=== PATIENT | female | born 1975 | race Hispanic/Latino ===

== ENCOUNTER 2019-01-16 12:08 | Emergency (ER) | payer MEDICARE ==
[~2019-01-16] VITALS: Ht 165.1 cm; Wt 73.9 kg
[~2019-01-16 12:08] MED LIST: ALBUTEROL SULF8.5 GM; GLIMEPIRIDE1 MG PO; JANUMET 50-1,01 EACH PO; LOVASTATIN10 MG PO
--- OUTSIDE RECORDS SUMMARY | 2019-01-16 12:11 | XMS REPORT ---
Author Author [facility] Address Unknown Phone Unavailable Care Team Providers Care [employer] Sh[employer] Technician Name Role Phone Unavailable Unavailable Payers Payer Name Policy Type Policy Number Effective Date Expiration Date Problems This patient has no known problems. Allergies, Adverse Reactions, Alerts Allergy Name Allergy Type Status Severity Reaction(s) Onset Date Inactive Date Treating Clinician Comments No Known Allergies DA Active U 2018-11-05 00:00:00 No Known Allergies DA Active U 2018-08-25 00:00:00 No Known Allergies DA Active U 2018-05-20 00:00:00 No Known Allergies DA Active U 2017-11-29 00:00:00 Medications This patient has no known medications. Encounters Start Date/Time End Date/Time Encounter Type Admission Type Attending Clinicians Care Facility Care Department Encounter ID 2017-04-22 22:01:16 2017-04-22 22:01:16 Emergency [facility] [id number] 2017-04-22 21:49:01 2017-04-22 21:49:01 Emergency [facility] [id number] Results Test Description Test Time Test Comments Text Results Atomic Results Result Comments INFLUENZA A B ANTIBODIES 2018-11-05 13:41:00 AB INFLUENZA A CF (test code=INFLAABT) AB INFLUENZA B CF (test code=INFLBABT) COMMENTS: If seasonally appropriateINFLUENZA A [id number] 13:41:00* Test Item Value Reference Range Comments INFLUENZA A (test code=FLUAPCR) Negative Negative INFLUENZA B (test code=FLUBPCR) Negative Negative COMMENTS: If seasonally appropriate- XR CHEST 2 [id number] 12:09:00 FAX: Oralia Wilson MD [phone] [place]: St: REG FAX: Jair Villanueva MD [phone] Name: DIEGO CARVALHO [facility] : 1975 Age/S: 43/F [address] [place], [place] [address] Unit #: [id number] Loc: [place] [address] Phys: Jair Villanueva MD Acct: [id number] Dis Date: Status: REG ER PHONE #: [phone] Exam Date: 11/05/2018 1205 FAX #: [phone] Reason: Fever EXAMS: CPT CODE: [id number] XR CHEST 2 V 88484 PROCEDURE: CHEST TWO VIEW INDICATION: Fever and cough COMPARISON: 07/17/2018 FINDINGS: The lungs are clear. The pleura, cardiomediastinal silhouette and bony thorax are normal. No vascular congestion is present. IMPRESSION: No acute ca rdiopulmonary process. SL: [id number] E lectronically Signed by Freda Parra on at 1209 Reported and signed by: Rina Parra M.D. CC: Oralia Wilson MD; Jair panda MD Technologist: Arminda Chaney, RT(R); KUNAL Gross RT(R) Trnscrd Date/Time/By: 11/05/2018 (4019) : By: [email or web address] Orig Print D/T: S: 11/05/2018 (4939) PAGE 1 Signed Report UA CULT [id number] 14:35:00* Test Item Value Reference Range Comments UA WBC (test code=WBCU) 4-9 WBC/HPF 0-3 UA SQUAMOUS CELLS (test code=SQU) 6-10 /HPF NONE SEEN UA CULTURE NEEDED? (test code=UACULT) NO, WBC<10 Criteria Culture Chk Criteria not met, Urine Culture cancelled. URINALYSIS [id number] 14:06:00* Test Item Value Reference Range Comments UA COLOR (test code=COLU) YELLOW YEL/STRAW UA APPEARANCE (test code=APPU) CLEAR CLEAR UA GLUCOSE DIPSTICK (test code=DGLUU) 3+ NEGATIVE UA BILIRUBIN DIPSTICK (test code=BILU) NEGATIVE NEGATIVE UA KETONE DIPSTICK (test code=KETU) TRACE NEGATIVE UA SPECIFIC GRAVITY (test code=SGU) 1.022 1.005-1.030 UA BLOOD DIPSTICK (test code=THUY) NEGATIVE NEGATIVE UA PH DIPSTICK (test code=FENG) 6.0 5.0-7.0 UA PROTEIN DIPSTICK (test code=PROU) NEGATIVE NEGATIVE UA UROBILINIOGEN DIPSTICK (test code=URO) 0.2 mg/dL 0.2-1.0 UA NITRITE DIPSTICK (test code=DELMA) NEGATIVE NEGATIVE UA LEUKOCYTE ESTERASE DIPSTICK (test code=LEUU) NEGATIVE NEGATIVE UA WBC (test code=WBCU) 4-9 WBC/HPF 0-3 UA RBC (test code=RBCU) 4-10 RBC/HPF 0-3 UA BACTERIA (test code=BACU) 1+ /HPF NONE SEEN UA SQUAMOUS CELLS (test code=SQU) 6-10 /HPF NONE SEEN UA MUCUS (test code=MUCU) TRACE /LPF NONE SEEN UA YEAST (BUDDING) (test code=YEASTUBD) 2+ /HPF NONE COMMENTS: Clean CatchCOMPREHENSIVE METABOLIC [id number] 12:35:00* Test Item Value Reference Range Comments SODIUM (test code=NA) 136 mEq/L 134-147 POTASSIUM (test code=K) 3.9 mEq/L 3.4-5.0 CHLORIDE (test code=CL) 103 mEq/L 100-108 CARBON DIOXIDE (test code=CO2) 26 mEq/L 21-33 ANION GAP (test code=GAP) 11 0-20 GLUCOSE (test code=GLU) 249 mg/dL 70-110 BLOOD UREA NITROGEN (test code=BUN) 8 mg/dL 7-18 GLOMERULAR FILTRATION RATE (test code=GFR) 109.1 95-105 Units of measure=ml/min/1.73 m2 CREATININE (test code=CREAT) 0.6 mg/dL 0.6-1.3 TOTAL PROTEIN (test code=PROT) 7.3 g/dL 6.4-8.2 ALBUMIN (test code=ALB) 3.40 g/dL 3.4-5.0 CALCIUM (test code=CA) 8.7 mg/dL 8.0-10.5 BILIRUBIN TOTAL (test code=BILT) 0.30 mg/dL 0.0-1.0 SGOT/AST (test code=AST) 12 IUnit/L 15-37 SGPT/ALT (test code=ALT) 26 IUnit/L 15-65 ALKALINE PHOSPHATASE TOTAL (test code=ALKP) 61 IUnit/L 20-125 [id number] 12:35:00* Test Item Value Reference Range Comments LIPASE (test code=LIP) 129 IUnit/L 73-393 CBC W/AUTO [id number] 12:04:00* Test Item Value Reference Range Comments WHITE BLOOD CELL (test code=WBC) 9.53 x10 3/uL 4.5-11.0 RED BLOOD CELL (test code=RBC) 4.68 x10 6/uL 3.54-5.02 HEMOGLOBIN (test code=HGB) 14.0 g/dL 11.0-15.0 HEMATOCRIT (test code=HCT) 42.4 % 33.0-45.0 MEAN CELL VOLUME (test code=MCV) 90.6 fL 81.0-99.0 MEAN CELL HGB (test code=MCH) 29.9 pg 27.0-33.0 MEAN CELL HGB CONCETRATION (test code=MCHC) 33.0 g/dL 33.0-37.0 RED CELL DISTRIBUTION WIDTH CV (test code=RDW) 11.8 % 11.5-14.5 RED CELL DISTRIBUTION WIDTH SD (test code=RDW-SD) 38.8 fL 37.0-54.0 PLATELET COUNT (test code=PLT) 382 x10 3/uL 150-400 MEAN PLATELET VOLUME (test code=MPV) 10.2 fL 7.0-9.0 NEUTROPHIL % (test code=NT%) 59.7 % 56.0-77.0 IMMATURE GRANULOCYTE % (test code=IG%) 0.4 % 0.0-2.0 LYMPHOCYTE % (test code=LY%) 30.8 % 14.0-32.0 MONOCYTE % (test code=MO%) 6.1 % 4.8-9.0 EOSINOPHIL % (test code=EO%) 2.5 % 0.3-3.7 BASOPHIL % (test code=BA%) 0.5 % 0.0-2.0 NUCLEATED RBC % (test code=NRBC%) 0.0 % 0-0 NEUTROPHIL # (test code=NT#) 5.68 x10 3/uL 2.0-7.6 IMMATURE GRANULOCYTE # (test code=IG#) 0.04 x10 3/uL 0.00-0.03 LYMPHOCYTE # (test code=LY#) 2.94 x10 3/uL 1.0-3.8 MONOCYTE # (test code=MO#) 0.58 x10 3/uL 0.1-0.8 EOSINOPHIL # (test code=EO#) 0.24 x10 3/uL 0.0-0.2 BASOPHIL # (test code=BA#) 0.05 x10 3/uL 0.0-0.2 NUCLEATED RBC # (test code=NRBC#) 0.00 x10 3/uL 0.0-0.1 MANUAL DIFF REQUIRED (test code=MDIFF) NO - CT ABD PELVIS W/O [id number] 12:02:00 Name: DIEGO CARVALHO [facility] : 1975 Age/S: 43 / F [address] [place] [address] Unit #: [id number] Loc: [place] [address] Phys: Konstantin An DO Acct: [id number] Dis Date: Status: REG ER PHONE #: [phone] Exam Date: 09/30/2018 1144 FAX #: [phone] Reason: right flank pain EXAMS: CPT CODE: [id number] CT ABD PELVIS W/O CONT 62857 Procedure: CT Abdomen/Pelvis without Contrast. Clinical Indication: Right flank pain. Comparison: CT scan of the abdomen and pelvis 03/03/2018. TECHNIQUE: Noncontrasted helical imaging was performed from the kidneys through the symphysis as a renal stone protocol. Axial and coronal reformations are available. CT imaging performed at this location utilizes radiation dose optimization techniques which include one or more of the following: - Automated exposure control -Adjustment of the mA and/or kV according to patient size -Use of iterative reconstruction technique CT Radiation Dose DLP 514 mGy-cm FINDINGS: This examination is limited for the evaluation of solid organs and vascular structures due to lack of intravenous contrast, which is standard for urinary calculus assessment CT. LOWER CHEST: The lung bases are clear. KIDNEYS: The kidneys are unremarkable. There is a stable tiny 2 mm calcification in the right hemipelvis near the expected location of the distal right ureter however likely represents a calcified phlebolith. SOLID ORGANS: The liver demonstrates diminished attenuation consistent with fatty infiltration. There are calcified splenic granulomata. The noncontrast pancreas, adrenal glands and gallbladder appear normal. BOWEL: There are scattered colonic diverticula most pronounced in the sigmoid colon. No bowel obstruction is observed however extensive ret ained fecal matter throughout the colon precludes evaluation for polypoid lesions. The appendix is unremarkable. PERITONEUM: No free intra peritoneal fluid or air. RETROPERITONEUM: No adenopathy. Aorta is normal. PELVIS: The patient has had previous hysterectomy. There is a surgical clip in the left adnexa. The patient has had previous right PAGE 1 Signed Report (CONTINUED) Name: DIEGO CARVALHO [facility] : 1975 Age/S: 43 / F [address] [place] [address] Unit #: [id number] Loc: [place] [address] Phys: Kvng An DO Acct: [id number] Di s Date: Status: REG ER PHONE #: Exam Date: 09/30/2018 9699 FAX #: [phone] Reason: right flank pain EXAMS: CPT CODE: [id number] CT ABD PELVIS W/O CONT 46099 <Continued> oophorectomy by report. The left ovary is unremarkable. The urinary bladder is not fully distended for diagnosis however no acute abnormality is identified. MUSCULOSKELETAL: Degenerative change involves the lower lumbosacral spine. IMPRESSION: 1. Stable tiny 2 mm calcification near the expected location of the distal right ureter, likely representing a calcified phlebolith. 2. No hydronephrosis or nephrolithiasis identified. 3. Fatty infiltration of the liver. 4. Previous granulomatous disease. 5. Colonic diverticulosis. 6. Prior hysterectomy and right oophorectomy. 7. Degenerative change. SL: XENIA at 1202 Reported and signed by: Daniel Rojas M.D. CC: Oralia Wilson MD; Konstantin An DO Technologist:Hernesto Robles RT(R) CTDI: DLP: Trnscb Date/Time: 09/30/2018 (7675) GiacomoO Orig Print D/T: S: 09/30/2018 (4461) CTDI: DLP: PAGE 2 Signed Report
--- OUTSIDE RECORDS SUMMARY | 2019-01-16 12:11 | XMS REPORT ---
Author Author Admin, [place] [facility] Address Unknown Phone Unavailable Allergies, Adverse Reactions, Alerts Allergy Name Reaction Description Start Date Severity Status Provider No Known Allergies Clarisse Weaver [employer] Conditions or Problems Problem Name Problem Code Onset Date Status Entry Date Provider Comment Standard Description Annotate Migraine headache 346.90 Active Oralia Wilson MD Migraine, unspecified, without mention of intractable migraine, without mention of status migrainosus Breast cancer 174.9 Active Jerel Olivo MD Malignant neoplasm of breast (female), unspecified Follow-up examination, vaginal Pap smear V76.2 Active Jerel Olivo MD Screening for malignant neoplasms of the cervix 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 V72.3 Active Jerel Olivo MD Special investigations and examinations - Gynecological examination Hypercholesterolemia 272.0 Active Kathy Phan MD (res) Pure hypercholesterolemia Knee joint pain, left 719.46 Active Kathy Phan MD (res) Pain in joint involving lower leg Anxiety 300.00 Active Oralia Wilson MD Anxiety state, unspecified BMI 27.0-27.9 Active Oralia Wilson MD Body Mass Index 27.0-27.9, adult Breast cancer, personal hx V10.3 Active Oralia Wilson MD Personal history of malignant neoplasm of breast left mastectomy Breast pain, left 611.71 Active Oralia Wilson MD Mastodynia Diabetes mellitus 250.00 Active Oralia Wilson MD Diabetes mellitus without mention of complication, type II or unspecified type, not stated as uncontrolled Elevated blood pressure 796.2 Active Oralia Wilson MD Elevated blood pressure reading without diagnosis of hypertension Fatigue 780.79 Active Oralia Wilson MD Other malaise and fatigue Hx of mastectomy, right V45.71 Active Oralia Wilson MD Acquired absence of breast and nipple in 2010 Overweight Active Oralia Wilson MD Overweight Screening, Thyroid Disorders V77.0 Inactive Oralia Wilson MD Screening for thyroid disorders Screening, Thyroid Disorders ICD-V77.0 Inactive Oralia Wilson MD Medication List Medication Instructions Start Date Stop Date Generic Name NDC Status Provider Patient Instruction JANUVIA 100 MG ORAL TABLET 1 tab By Mouth daily SITAGLIPTIN PHOSPHATE 33869270167 Active Oralia Wilson MD Active PROPRANOLOL HCL 20 MG ORAL TABLET 1 tab By Mouth Twice a Day PROPRANOLOL HCL 15990330391 Active Oralia Wilson MD Active GLIPIZIDE 10 MG ORAL TABLET 1 tab By Mouth daily GLIPIZIDE 45866009072 Active Oralia Wilson MD Active LOVASTATIN 20 MG ORAL TABLET 1 tab By Mouth daily take at bedtime LOVASTATIN 64675024001 Active Oralia Wilson MD Active LISINOPRIL 10 MG ORAL TABLET 1 by mouth every day LISINOPRIL 47173573879 Active Oralia Wilson MD Active METFORMIN HCL 1000 MG ORAL TABLET 1 by mouth twice a day METFORMIN HCL 99242455527 Active Oralia Wilson MD Active TERCONAZOLE 0.4 % VAGINAL CREAM 1 applicator per vagina once a night for 7 days TERCONAZOLE 0.4 % VAGINAL CREAM 782091 TERCONAZOLE Inactive TERCONAZOLE 0.4 % VAGINAL CREAM 1 applicator per vagina once a night for 7 days TERCONAZOLE 81945161326 No Longer Active Jerel Olivo MD Active Immunizations Vaccine Administration Date Value Standard Description influenza immunization (Flu Vax) has been administered given influenza virus vaccine, unspecified formulation Vital Signs Date Name Value Unit Range Description blood pressure, diastolic, second observation 85 mm[Hg] BP roberts blood pressure, diastolic 85 mm[Hg] BP roberts blood pressure, systolic, second observation 142 mm[Hg] BP sys blood pressure, systolic 142 mm[Hg] BP sys height E&M 65 [in_us] Bdy height pulse rate E&M 91 /min Heart rate respiratory rate E&M 16 /min Resp rate temperature E&M 99.5 [degF] Body temperature weight E&M 153.38 [lb_av] Weight Measured blood pressure, diastolic 101 mm[Hg] BP roberts blood pressure, systolic 141 mm[Hg] BP sys height E&M 65 [in_us] Bdy height pulse rate E&M 102 /min Heart rate respiratory rate E&M 17 /min Resp rate temperature E&M 98.4 [degF] Body temperature weight E&M 160 [lb_av] Weight Measured blood pressure, diastolic 89 mm[Hg] BP roberts blood pressure, systolic 125 mm[Hg] BP sys height E&M 65 [in_us] Bdy height pulse rate E&M 101 /min Heart rate respiratory rate E&M 15 /min Resp rate temperature E&M 98.5 [degF] Body temperature weight E&M 159.80 [lb_av] Weight Measured blood pressure, diastolic, second observation 96 mm[Hg] BP roberts blood pressure, diastolic 96 mm[Hg] BP roberts blood pressure, systolic, second observation 146 mm[Hg] BP sys blood pressure, systolic 146 mm[Hg] BP sys height E&M 65 [in_us] Bdy height pulse rate E&M 100 /min Heart rate respiratory rate E&M 17 /min Resp rate temperature E&M 98.6 [degF] Body temperature weight E&M 162 [lb_av] Weight Measured Diagnostic Results Date Name Value Unit Range Description Lab Report: CBC With Differential/Platelet, Basic Metabolic Panel (8), T ... - Hematology basophils as percent of blood leukocytes 0 % Not Estab. Lab Report: CBC With Differential/Platelet, Basic Metabolic Panel (8), T ... - Chemistry calcium, serum 9.7 mg/dL 8.7-10.2 Lab Report: CBC With Differential/Platelet, Basic Metabolic Panel (8), T ... - Hematology lymphocyte count, blood, automated 2.7 X10E3/UL 10*3/mm3 0.7-3.1 Lab Report: CBC With Differential/Platelet, Basic Metabolic Panel (8), T ... - Chemistry urea nitrogen, blood 9 mg/dL 6-24 Lab Report: CBC With Differential/Platelet, Basic Metabolic Panel (8), T ... 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 - Chemistry urea nitrogen/creatinine ratio, serum 14 9-23 immature granulocytes, percentage of total cells, blood 0 % Not Estab. creatinine, serum 0.65 mg/dL 0.57-1.00 Lab Report: CBC With Differential/Platelet, Basic Metabolic Panel (8), T ... - Genetics/fertility eGFR if 127 mL/min/1.73m2 >59 Lab Report: CBC With Differential/Platelet, Basic Metabolic Panel (8), T ... - Hematology mean corpuscular volume, RBC 91 fL 79-97 Lab Report: CBC With Differential/Platelet, Basic Metabolic Panel (8), T ... - Chemistry chloride, serum 94 mmol/L 96-106 Lab Report: Lipid Panel, Hemoglobin A1c - Chemistry triglyceride, serum, fasting 224 mg/dL 0-149 Lab Report: CBC With Differential/Platelet, Basic Metabolic Panel (8), T ... - Hematology lymphocytes as percent of blood leukocytes 23 % Not Estab. erythrocyte (RBC) count 5.00 X10E6/UL 10*6/mm3 3.77-5.28 Lab Report: CBC With Differential/Platelet, Basic Metabolic Panel (8), T ... - Chemistry Estimated Glomerular Filtration Rate (calc) 110 mL/min/1.73m2 >59 Lab Report: CBC With Differential/Platelet, Basic Metabolic Panel (8), T ... - Hematology platelet count 361 X10E3/UL 10*3/mm3 964-792 7243/10/27 red blood cell distribution width 12.8 % 12.3-15.4 Lab Report: CBC With Differential/Platelet, Basic Metabolic Panel (8), T ... - Chemistry carbon dioxide, venous blood 22 mmol/L 18-29 Lab Report: Lipid Panel, Hemoglobin A1c - Chemistry HDL cholesterol, serum 37 mg/dL >39 Lab Report: CBC With Differential/Platelet, Basic Metabolic Panel (8), T ... - Chemistry sodium, serum 134 mmol/L 134-144 Office Visit: Acute Visit - Chemistry hemoglobin A1C, blood, as % of total hemoglobin 10.9 % Office Visit: Adult Followup on blood pressure rm 7 Dr Phan - Chemistry blood glucose, fasting 297 mg/dL Lab Report: CBC With Differential/Platelet, Basic Metabolic Panel (8), T ... - Hematology eosinophils as percent of blood leukocytes 2 % Not Estab. Lab Report: CBC With Differential/Platelet, Basic Metabolic Panel (8), T ... - Chemistry Absolute Neutrophils 8.3 X10E3/UL 10*3/uL 1.4-7.0 Lab Report: CBC With Differential/Platelet, Basic Metabolic Panel (8), T ... - Hematology basophil count, absolute 0.0 x10E3/uL 0.0-0.2 Lab Report: Lipid Panel, Hemoglobin A1c - Chemistry LDL cholesterol, serum 151 mg/dL 0-99 Lab Report: CBC With Differential/Platelet, Basic Metabolic Panel (8), T ... - Hematology Eosinophil Absolute Count 0.2 X10E3/UL 10*3/uL 0.0-0.4 monocytes as percent of blood leukocytes 4 % Not Estab. Lab Report: Lipid Panel, Hemoglobin A1c - Chemistry cholesterol, serum 233 mg/dL 100-199 Lab Report: CBC With Differential/Platelet, Basic Metabolic Panel (8), T ... - Hematology mean corpuscular hemoglobin, RBC 31.2 pg 26.6-33.0 mean corpuscular hemoglobin concentration, RBC 34.2 G/DL % 31.5-35.7 hemoglobin, blood 15.6 g/dL 11.1-15.9 neutrophils as percent of blood leukocytes 71 % Not Estab. leukocyte count, blood 11.8 X10E3/UL 10*3/mm3 3.4-10.8 hematocrit, blood 45.6 % 34.0-46.6 Lab Report: CBC With Differential/Platelet, Basic Metabolic Panel (8), T ... - Chemistry potassium, serum 4.6 mmol/L 3.5-5.2 blood glucose, random 301 mg/dL 65-99 thyroid stimulating hormone, serum 1.080 u[iU]/mL 0.450-4.500 Lab Report: Lipid Panel, Hemoglobin A1c - Chemistry very low density lipoproteins 45 mg/dL 5-40 Internal Correspondence: Pre-Visit Planning - Other List of providers caring for patient Diane Wills and Adina Vera Encounters Date Encounter Provider Code Facility 13:51:56 CDT Est Patient Exp Problem - 68457 Oralia Wilson MD CPT-51554 [facility] 12:04:00 CDT Est Patient Exp Problem - 92615 Kathy Phan MD (res) CPT-90129 [facility] 14:23:43 CDT New Patient Detailed - 42471 Oralia Wilson MD CPT-06084 [facility] Procedures Code Procedure Name Date Entry Date Standard Description CPT-HE001 Health Education/Supportive Counseling 17:19:43 CDT CPT-62206 HEMOGLOBIN A1C - In House 15:56:13 CDT CPT-45063 Est Patient Well Exam (40 - 64 Yrs) - [address]15 16:18:53 CDT
[2019-01-16] MEDS ORDERED: HYDROCODONE/APAP 7.5MG-325MG 1 EA TAB PO PRN (13:00)
[2019-01-16] MEDS ORDERED: CYCLOBENZAPRINE HCL 10 MG TAB PO ONE (13:00)
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
--- NOTE | 2019-01-16 15:18 | Diagnostic Imaging Report ---
History: C2 fracture seen on same-day cervical spine x-ray Comparison studies: X-ray of the cervical spine 01/16/2019 Technique: Axial images were obtained through the cervical region.. Coronal and sagittal images reconstructed from the axial data.. Intravenous contrast: None Dose modulation, iterative reconstruction, and/or weight based adjustment of the mA/kV was utilized to reduce the radiation dose to as low as reasonably achievable. Findings: Fractures: None. The previously visualized lucency at the base of the dens on the odontoid view is artifactual. Soft tissues: No gross abnormalities. Atlantoaxial articulation: Mild degenerative changes with decreased predental space, marginal osteophytes and sclerotic changes. Alignment: Straightening of the normal lordosis. No scoliosis. Cervicomedullary junction: No abnormalities. The foramen magnum is patent. Vertebrae: No infection or neoplasm. Degenerative changes: Patent canal and foramina. Right mastoidectomy changes partially visualized. IMPRESSION: 1. No acute cervical spine abnormalities. No odontoid fracture is seen. Degenerative changes at the atlantoaxial joint. 2. Cannot exclude ligament, spinal cord and or vascular abnormalities on the basis of this examination. Signed by: DR Jordi Clinton M.D. on 01/16/2019 3:15 PM
[2019-01-16 15:48] VITALS: BP 115/70
== END 2019-01-16 16:44 | disposition home or self-care (01) ==
LOC: ER 12:08
DX: M54.2 Cervicalgia (principal); S16.1XXA Strain of muscle, fascia and tendon at neck level, initial encounter; V43.52XA Car driver injured in collision with other type car in traffic accident, initial encounter; Y92.488 Other paved roadways as the place of occurrence of the external cause; Z85.3 Personal history of malignant neoplasm of breast
CPT/HCPCS: 72050; 72125; 99284

== ENCOUNTER 2021-01-08 22:02 | Inpatient (IN) | payer BC, OTHER ==
[~2021-01-08] VITALS: Ht 165.1 cm; Wt 73.9 kg
[2021-01-08 22:34] LABS: BASOPHILS # (AUTO) 0.1 (0.0-0.1); BASOPHILS % 0.6 % (0.0-1.0); EOSINOPHILS # (AUTO) 0.3 (0.0-0.4); EOSINOPHILS % 3.2 % (0.0-6.0); HEMATOCRIT 39.8 % (34.2-44.1); HEMOGLOBIN 13.4 g/dL (12.0-16.0); LYMPHOCYTES # (AUTO) 2.9 (1.0-3.2); MEAN CORPUSCULAR HEMOGLOBIN 29.6 pg (28-32); MEAN CORPUSCULAR HGB CONC 33.7 g/dL (31-35); MEAN CORPUSCULAR VOLUME 87.9 fL (81-99); MONOCYTES # (AUTO) 0.7 (0.2-0.8); MONOCYTES % 8.1 % (4.4-11.3); NEUTROPHILS # (AUTO) 4.4 (2.1-6.9); NEUTROPHILS % 52.9 % (38.7-80.0); PLATELET COUNT 278 x10e3/uL (140-360); RED BLOOD COUNT 4.53 x10e6/uL (3.6-5.1); RED CELL DISTRIBUTION WIDTH 12.8 % (11.7-14.4)
[2021-01-08] MEDS ORDERED: NITROGLYCERIN 2% OINT 1 GM PKT TOP ONE (22:45)
[2021-01-08 22:52] LABS: ALANINE AMINOTRANSFERASE 20 IU/L (0-55); ALBUMIN 3.5 g/dL (3.5-5.0); ALBUMIN/GLOBULIN RATIO 0.9 (0.8-2.0); ALKALINE PHOSPHATASE 63 IU/L (40-150); ANION GAP 15.5 mmol/L (8-16); BLOOD UREA NITROGEN 10 mg/dL (7-26); BUN/CREATININE RATIO 13 (6-25); CARBON DIOXIDE 27 mmol/L (22-29); CHLORIDE 99 mmol/L (98-107); CREATINE KINASE 43 IU/L (29-168); CREATININE, SERUM 0.79 mg/dL (0.57-1.11); EST GLOMERULAR FILTRATION RATE > 60 ML/MIN (60-); GLUCOSE 391 mg/dL (74-118); POTASSIUM 4.5 mmol/L (3.5-5.1); SODIUM 137 mmol/L (136-145)
[2021-01-09] MEDS ORDERED: DEXTROSE 50% SYRINGE 50 ML IV PRN ×2 (00:45→07:15)
[2021-01-09] MEDS: ACETAMINOPHEN 325 MG TAB PO PRN ×2 (03:27→07:47)
[2021-01-09] MEDS ORDERED: ACETAMINOPHEN 325 MG TAB ONE (03:32)
[2021-01-09 07:05] LABS: CREATINE KINASE MB 0.7 ng/mL (0-5.0)
[2021-01-09 07:36] LABS: CHOL/HDL RATIO 4.9 (3.0-3.6)
[2021-01-09] MEDS: NITROGLYCERIN 2% OINT 1 GM PKT TOP SCH ×3 (07:45→16:12)
[2021-01-09] MEDS: INSULIN REGULAR, HUMAN 100 UNIT/1 ML 3ML VIAL SQ SCH ×2 (07:53→11:30)
[2021-01-09] MEDS: INSULIN LISPRO 100 UNIT/1 ML 3ML VIAL SQ SCH ×4 (07:54→20:36)
[2021-01-09] MEDS: ASPIRIN 81 MG ENTERIC COATED PO SCH (08:18)
[2021-01-09 11:43] VITALS: BP 144/82
[2021-01-09 11:55] VITALS: BP 144/82
[2021-01-09 11:57] VITALS: BP 144/82
[2021-01-09] MEDS ORDERED: REGADENOSON 0.4 MG/5 ML SYR IV ONE (13:18)
[2021-01-09 16:08] VITALS: BP 148/93
[2021-01-09] MEDS ORDERED: CLOPIDOGREL BISULFATE 75 MG TAB PO ONE (16:15)
[2021-01-09] MEDS: CARVEDILOL 12.5 MG TAB PO SCH (16:31)
[2021-01-09 17:09] LABS: CREATINE KINASE MB 0.7 ng/mL (0-5.0)
[2021-01-09] MEDS: ONDANSETRON HCL INJ 2MG/ML 2ML 2 MG/ML VIAL IV PRN (17:38)
[2021-01-09] MEDS: MORPHINE SULFATE INJ 2 MG/ML SYR IV PRN (17:38)
[2021-01-09 20:00] VITALS: BP 134/75
[2021-01-09] MEDS: ATORVASTATIN 40 MG TAB PO SCH (20:35)
[2021-01-09 20:36] VITALS: BP 134/75
[2021-01-09] MEDS ORDERED: ATORVASTATIN 20 MG TAB PO SCH (21:00)
[2021-01-10] VITALS (10 sets, daily range): BP systolic 101–137; BP diastolic 62–84
[2021-01-10] MEDS: NITROGLYCERIN 2% OINT 1 GM PKT TOP SCH ×4 (05:19→16:19)
[2021-01-10] MEDS: ACETAMINOPHEN 325 MG TAB PO PRN (06:59)
[2021-01-10 07:09] LABS: BASOPHILS % 0.5 % (0.0-1.0); EOSINOPHILS # (AUTO) 0.2 (0.0-0.4); EOSINOPHILS % 3.1 % (0.0-6.0); HEMATOCRIT 39.1 % (34.2-44.1); LYMPHOCYTES # (AUTO) 2.2 (1.0-3.2); LYMPHOCYTES % 27.6 % (18.0-39.1); MEAN CORPUSCULAR HEMOGLOBIN 29.1 pg (28-32); MEAN CORPUSCULAR HGB CONC 33.2 g/dL (31-35); MEAN CORPUSCULAR VOLUME 87.7 fL (81-99); MONOCYTES # (AUTO) 0.7 (0.2-0.8); MONOCYTES % 8.6 % (4.4-11.3); NEUTROPHILS # (AUTO) 4.7 (2.1-6.9); NEUTROPHILS % 59.8 % (38.7-80.0); PLATELET COUNT 260 x10e3/uL (140-360); RED BLOOD COUNT 4.46 x10e6/uL (3.6-5.1); RED CELL DISTRIBUTION WIDTH 12.6 % (11.7-14.4)
[2021-01-10 07:30] LABS: ALANINE AMINOTRANSFERASE 18 IU/L (0-55); ALBUMIN/GLOBULIN RATIO 0.9 (0.8-2.0); ALKALINE PHOSPHATASE 56 IU/L (40-150); ANION GAP 15.5 mmol/L (8-16); BLOOD UREA NITROGEN 9 mg/dL (7-26); BUN/CREATININE RATIO 14 (6-25); CALCIUM 8.6 mg/dL (8.4-10.2); CARBON DIOXIDE 22 mmol/L (22-29); CHLORIDE 103 mmol/L (98-107); CREATININE, SERUM 0.66 mg/dL (0.57-1.11); EST GLOMERULAR FILTRATION RATE > 60 ML/MIN (60-); GLUCOSE 358 mg/dL (74-118); MAGNESIUM 1.7 MG/DL (1.3-2.1); POTASSIUM 4.5 mmol/L (3.5-5.1); SODIUM 136 mmol/L (136-145)
[2021-01-10 07:56] LABS: CHOL/HDL RATIO 5.2 (3.0-3.6)
[2021-01-10] MEDS: INSULIN LISPRO 100 UNIT/1 ML 3ML VIAL SQ SCH ×4 (08:01→22:36)
[2021-01-10] MEDS: ASPIRIN 81 MG ENTERIC COATED PO SCH (08:29)
[2021-01-10] MEDS: CLOPIDOGREL BISULFATE 75 MG TAB PO SCH (08:30)
[2021-01-10] MEDS: CARVEDILOL 12.5 MG TAB PO SCH ×2 (08:30→16:44)
[2021-01-10] MEDS: MORPHINE SULFATE INJ 2 MG/ML SYR IV PRN ×3 (10:37→16:51)
[2021-01-10] MEDS: ONDANSETRON HCL INJ 2MG/ML 2ML 2 MG/ML VIAL IV PRN ×2 (10:38→16:00)
[2021-01-10] MEDS: ATORVASTATIN 40 MG TAB PO SCH (20:06)
[2021-01-11] VITALS (9 sets, daily range): BP systolic 114–141; BP diastolic 62–86
[2021-01-11] MEDS: NITROGLYCERIN 2% OINT 1 GM PKT TOP SCH ×4 (05:48→17:04)
[2021-01-11] MEDS: ASPIRIN 81 MG ENTERIC COATED PO SCH (07:57)
[2021-01-11] MEDS: CLOPIDOGREL BISULFATE 75 MG TAB PO SCH (07:58)
[2021-01-11] MEDS: CARVEDILOL 12.5 MG TAB PO SCH ×2 (07:58→17:04)
[2021-01-11] MEDS: INSULIN LISPRO 100 UNIT/1 ML 3ML VIAL SQ SCH ×4 (08:41→22:08)
[2021-01-11] MEDS: MORPHINE SULFATE INJ 2 MG/ML SYR IV PRN (17:06)
[2021-01-11] MEDS: ONDANSETRON HCL INJ 2MG/ML 2ML 2 MG/ML VIAL IV PRN (17:06)
[2021-01-11] MEDS: ATORVASTATIN 40 MG TAB PO SCH (20:27)
[2021-01-12] VITALS: BP 116/67
[2021-01-12 04:00] VITALS: BP 122/67
[2021-01-12] MEDS: NITROGLYCERIN 2% OINT 1 GM PKT TOP SCH ×2 (06:00)
[2021-01-12] MEDS: INSULIN LISPRO 100 UNIT/1 ML 3ML VIAL SQ SCH ×3 (06:40→11:30)
[2021-01-12] MEDS ORDERED: HEPARIN SOD (PORCINE) 1000 UNIT/ML 30ML ONE (07:06)
[2021-01-12] MEDS ORDERED: MIDAZOLAM HCL 2 MG/2 ML VIAL ONE (07:06)
[2021-01-12] MEDS ORDERED: HEPARIN SOD/SOD CHLORIDE 2,000 ML ONE (07:07)
[2021-01-12] MEDS ORDERED: LIDOCAINE HCL 2% LOCAL 20 ML VIAL ONE (07:07)
[2021-01-12] MEDS ORDERED: IOPAMIDOL 370 MG/ML 200 ML INFUS..BTL INJ ONE (07:07)
[2021-01-12] MEDS ORDERED: FENTANYL CITRATE/PF 100MCG/2 ML INJ ONE (07:07)
[2021-01-12] MEDS ORDERED: NITROGLYCERIN/D5W 200 MCG/ML 0 ML ONE (07:08)
[2021-01-12] MEDS ORDERED: SODIUM CHLORIDE 0.9% 1000ML 1,000 ML ONE (07:08)
[2021-01-12] MEDS ORDERED: METFORMIN HCL 500 MG TAB CR PO SCH (08:00)
[2021-01-12 08:18] VITALS: BP 122/76
[2021-01-12 08:36] VITALS: BP 122/76
[2021-01-12] MEDS: CLOPIDOGREL BISULFATE 75 MG TAB PO SCH (08:37)
[2021-01-12] MEDS: ASPIRIN 81 MG ENTERIC COATED PO SCH (08:37)
[2021-01-12] MEDS: CARVEDILOL 12.5 MG TAB PO SCH (08:37)
[2021-01-12 11:32] VITALS: BP 117/72
== END 2021-01-12 12:25 | disposition home or self-care (01) | DRG 287 ==
LOC: ER 22:08 → ERHOLD 01-09 00:42 → MED/SURG 01-09 11:00 → OBSVTOIN 01-11 07:29
PROVIDERS: ADMIT Family Medicine; ATTEND Family Medicine
PROC: 4A023N7 Measurement of Cardiac Sampling and Pressure, Left Heart, Percutaneous Approach (ICD-10-PCS; principal; 2021-01-12)
PROC: B2111ZZ Fluoroscopy of Multiple Coronary Arteries using Low Osmolar Contrast (ICD-10-PCS; 2021-01-12)
PROC: B2151ZZ Fluoroscopy of Left Heart using Low Osmolar Contrast (ICD-10-PCS; 2021-01-12)
DX: I25.119 Atherosclerotic heart disease of native coronary artery with unspecified angina pectoris (principal); E78.5 Hyperlipidemia, unspecified; I50.9 Heart failure, unspecified; Z20.822 Contact with and (suspected) exposure to COVID-19; Z85.3 Personal history of malignant neoplasm of breast; Z90.11 Acquired absence of right breast and nipple; I10 Essential (primary) hypertension; E11.9 Type 2 diabetes mellitus without complications
CPT/HCPCS: 36415; 71045; 78452; 80053; 80061; 82550; 82553; 82948; 83036; 83735; 84443; 84484; 85025; 93005; 93017; 93306; 93458; 99152; 99153; 99285; A9502; C1769; C1894; G0378; J1644; J2001; J2250; J2270; J2405; J3010; J7030; Q9967; U0002